=== PATIENT | male | born 1965 | race African-American/Black ===

== ENCOUNTER 2021-09-24 11:29 | Emergency (ER) | payer BC ==
[2021-09-24 11:36] VITALS: TEMP 97.9; BMI 19.6
[2021-09-24] MEDS ORDERED: ASPIRIN 81 MG CHEWABLE TABLETS PO ONE (12:06)
[2021-09-24] MEDS ORDERED: NITROGLYCERIN SUBLINGUAL 1/150 0.4 MG TAB SL ONE (12:07)
[2021-09-24] MEDS ORDERED: NITROGLYCERIN SUBLINGUAL 1/150 0.4 MG TAB ONE (12:31)
[2021-09-24] MEDS ORDERED: ASPIRIN 81 MG CHEWABLE TABLETS ONE (12:31)
[2021-09-24 12:40] LABS: BASO % 1.2 % (0-2.0); EOS % 3.8 % (0-4.5); HEMATOCRIT 43.4 % (35.4-49); HEMOGLOBIN 15.2 GM/dL (11.7-16.9); LYMPH % 37.3 % (8-40); MCH 32.6 pg (25.7-33.7); MEAN CELL VOLUME 93.3 fl (80-96); MONO % 10.4 % (3.8-10.2); NEUT % 47.3 % (42.8-82.8); PLATELET COUNT 208 10^3/uL (134-434); RBC 4.65 M/mm3 (4.00-5.60); RDW 13.5 % (11.9-15.9); WHITE BLOOD COUNT 3.6 K/mm3 (4.0-10.0)
[2021-09-24 12:50] LABS: INR 1.06 (0.83-1.09); PROTHROMBIN TIME (PATIENT) 12.2 SEC (9.7-13.0)
[2021-09-24 12:52] LABS: ACTIVATED PTT 34.9 SECONDS (25.2-36.5)
[2021-09-24 12:54] LABS: BLOOD UREA NITROGEN 10.5 mg/dL (7-18); CALCIUM 9.8 mg/dL (8.5-10.1); MAGNESIUM 2.6 mg/dL (1.8-2.4)
[2021-09-24 12:56] LABS: ALBUMIN 4.2 g/dl (3.4-5.0)
[2021-09-24 13:00] LABS: BILIRUBIN,TOTAL 0.4 mg/dL (0.2-1); TOT PROT 7.3 g/dl (6.4-8.2)
[2021-09-24 13:20] VITALS: BP 108/68; PULSE 50
== END 2021-09-24 15:45 | disposition home or self-care (01) ==
LOC: JER 11:29
DX: R07.89 Other chest pain (principal)
CPT/HCPCS: 36415; 71045-TC-FY; 80053; 83735; 84484; 85025; 85610; 85730; 93005; 93010; 99285-25